=== PATIENT | female | born 1990 | race Caucasian/White ===

== ENCOUNTER 2018-04-05 09:48 | Inpatient (IN) | payer BC ==
[~2018-04-05] VITALS: Ht 162.6 cm; Wt 94.5 kg
[2018-04-05] MEDS ORDERED: LACTATED RINGERS 1,000 ML IV SCH ×2 (10:00→10:20)
[2018-04-05] MEDS ORDERED: OXYTOCIN 30U/ 0.9% NaCL 500ML 500 ML IV SCH (10:20)
[2018-04-05 10:24] VITALS: BP 118/71
[2018-04-05] MEDS ORDERED: METOCLOPRAMIDE 5 MG/ML, 2ML IV ONE (10:30)
[2018-04-05] MEDS ORDERED: LACTATED RINGERS 1,000 ML IVBOLUS ONE (10:30)
[2018-04-05] MEDS ORDERED: SODIUM CITRATE/CITRIC ACID 30 ML UDC PO ONE (10:30)
[2018-04-05] MEDS ORDERED: NEWBORN KIT ONE (11:06)
[2018-04-05] MEDS ORDERED: SODIUM CITRATE/CITRIC ACID 30 ML UDC ONE (11:06)
[2018-04-05] MEDS ORDERED: METOCLOPRAMIDE 5 MG/ML, 2ML ONE (11:07)
[2018-04-05] MEDS ORDERED: OXYTOCIN 30U/ 0.9% NaCL 500ML 500 ML ONE (11:07)
[2018-04-05 11:16] LABS: BASOPHILS # (AUTO) 0.02 x10^3/uL (0-0.1); BASOPHILS % (AUTO) 0 % (0-1); EOSINOPHILS # (AUTO) 0.03 x10^3/uL (0-0.4); EOSINOPHILS % (AUTO) 0 % (1-7); LYMPHOCYTES # (AUTO) 1.93 x10^3/uL (1-3.4); LYMPHOCYTES % (AUTO) 24 % (22-44); MD NO; MEAN CORPUSCULAR HEMOGLOBIN 30.4 pg (27.0-34.8); MEAN CORPUSCULAR HGB CONC 33.7 g/dL (32.4-35.8); MEAN CORPUSCULAR VOLUME 90.2 fL (80-100); MEAN PLATELET VOLUME 8.3 fL (7.4-10.4); MONOCYTES # (AUTO) 0.68 x10^3/uL (0.2-0.8); MONOCYTES % (AUTO) 8 % (2-9); NEUTROPHILS # (AUTO) 5.51 x10^3/uL (1.8-6.8); NEUTROPHILS % (AUTO) 67 % (42-75); PLATELET COUNT 215 x10^3/uL (130-400); RED BLOOD COUNT 4.08 x10^6/uL (3.82-5.3); RED CELL DISTRIBUTION WIDTH 14.3 % (9.6-15.2)
[2018-04-05] MEDS ORDERED: ALBUTEROL SULFATE 2.5 MG/3 ML NPPB PRN (11:30)
[2018-04-05] MEDS ORDERED: EPHEDRINE 50 MG/ML, 1ML IVPush PRN (11:30)
[2018-04-05] MEDS ORDERED: HYDROcodone/APAP 7.5-325MG/15ML UDC PO PRN (11:30)
[2018-04-05] MEDS ORDERED: HYDROmorphone 1 MG/ML, 1ML IV PRN (11:30)
[2018-04-05] MEDS ORDERED: MIDAZOLAM 1 MG/ML, 2ML IV PRN (11:30)
[2018-04-05] MEDS ORDERED: FENTANYL PF 100 MCG/2ML IV PRN (11:30)
[2018-04-05] MEDS ORDERED: OXYcodone 5 MG/5 ML ORAL.SOL UDC PO PRN (11:30)
[2018-04-05] MEDS ORDERED: PROMETHAZINE 25 MG/ML, 1ML IV PRN (11:30)
[2018-04-05] MEDS ORDERED: ONDANSETRON 2MG/ML, 2ML IVPush PRN (11:30)
[2018-04-05] MEDS ORDERED: morphine SULFATE 10 MG/ML, 1ML IV PRN (11:30)
[2018-04-05] MEDS ORDERED: hydrALAzine 20 MG/ML, 1ML IVPush PRN (11:30)
[2018-04-05] MEDS ORDERED: LABETALOL 5MG/ML, 20ML IV PRN (11:30)
[2018-04-05] MEDS ORDERED: MEPERIDINE/PF 25MG/0.5ML IVPush PRN (11:30)
[2018-04-05] MEDS ORDERED: hydrALAzine 20 MG/ML, 1ML IV PRN (11:30)
[2018-04-05] MEDS ORDERED: PHENYLEPHRINE 10 MG/ML ONE (11:35)
[2018-04-05] MEDS ORDERED: DEXAMETHASONE 4 MG/ML, 1ML ONE (11:35)
[2018-04-05] MEDS ORDERED: KETOROLAC 30 MG/1 ML ONE (11:35)
[2018-04-05] MEDS ORDERED: OXYTOCIN 10 UNITS/ML, 1ML ONE (11:35)
[2018-04-05] MEDS ORDERED: FENTANYL PF 100 MCG/2ML ONE (11:35)
[2018-04-05] MEDS ORDERED: CEFAZOLIN 1,000 MG ONE (11:35)
[2018-04-05] MEDS ORDERED: EPHEDRINE 50 MG/ML, 1ML ONE (11:35)
[2018-04-05] MEDS ORDERED: ONDANSETRON 2MG/ML, 2ML ONE (11:35)
[2018-04-05] MEDS ORDERED: MISOPROSTOL 200 MCG TABLET PR PRN (12:00)
[2018-04-05] MEDS ORDERED: RHOGAM FROM BLOOD BANK 1 NOTE EA IM/IV ONE (12:00)
[2018-04-05] MEDS ORDERED: ONDANSETRON 2MG/ML, 2ML IV PRN (12:00)
[2018-04-05] MEDS ORDERED: DIPH,PERTUSS(ACELL),TET VAC/PF NC IM-VACC PRN (12:00)
[2018-04-05] MEDS ORDERED: CALCIUM CARBONATE 500 MG TAB.CHEW PO PRN (12:00)
[2018-04-05] MEDS ORDERED: MEASLES,MUMPS&RUBELLA VACC/PF 0.5 ML SQ-VACC PRN (12:00)
[2018-04-05] MEDS ORDERED: OXYcodone IR 5MG TABLET PO PRN (12:00)
[2018-04-05] MEDS: LACTATED RINGERS 1,000 ML IV SCH ×4 (13:28→21:37)
[2018-04-05] MEDS ORDERED: OXYcodone 5 MG/5 ML ORAL.SOL UDC ONE (14:47)
[2018-04-05 15:45] VITALS: BP 114/58
[2018-04-05] MEDS: OXYTOCIN 30U/ 0.9% NaCL 500ML 500 ML IV SCH ×2 (17:25→21:37)
[2018-04-05] MEDS: KETOROLAC 30 MG/1 ML IV SCH ×2 (17:48→19:40)
[2018-04-05 19:14] LABS: MEAN CORPUSCULAR HEMOGLOBIN 30.7 pg (27.0-34.8); MEAN CORPUSCULAR HGB CONC 33.7 g/dL (32.4-35.8); MEAN CORPUSCULAR VOLUME 91.1 fL (80-100); MEAN PLATELET VOLUME 8.3 fL (7.4-10.4); PLATELET COUNT 216 x10^3/uL (130-400); RED CELL DISTRIBUTION WIDTH 13.9 % (9.6-15.2)
[2018-04-05 19:31] LABS: BASOPHILS # (AUTO) 0.03 x10^3/uL (0-0.1); BASOPHILS % (AUTO) 0 % (0-1); EOSINOPHILS % (AUTO) 0 % (1-7); LYMPHOCYTES # (AUTO) 1.33 x10^3/uL (1-3.4); LYMPHOCYTES % (AUTO) 9 % (22-44); MD SCAN; MONOCYTES # (AUTO) 0.33 x10^3/uL (0.2-0.8); MONOCYTES % (AUTO) 2 % (2-9); NEUTROPHILS # (AUTO) 13.62 x10^3/uL (1.8-6.8); NEUTROPHILS % (AUTO) 89 % (42-75)
[2018-04-05 20:00] VITALS: BP 122/74
[2018-04-06] MEDS: OXYcodone/APAP 5/325MG TABLET PO PRN ×4 (00:29→19:37)
[2018-04-06 00:30] VITALS: BP 134/74
[2018-04-06] MEDS: KETOROLAC 30 MG/1 ML IV SCH ×3 (02:26→14:37)
[2018-04-06] MEDS: LACTATED RINGERS 1,000 ML IV SCH ×5 (03:37→19:37)
[2018-04-06 04:12] VITALS: BP 104/62
[2018-04-06] MEDS: OXYTOCIN 30U/ 0.9% NaCL 500ML 500 ML IV SCH ×2 (07:34→17:50)
[2018-04-06] MEDS: DOCUSATE 100 MG CAPSULE PO PRN ×2 (07:47→19:37)
[2018-04-06] MEDS: PRENATAL VIT/IRON/FA 1 EACH TABLET PO SCH (07:47)
[2018-04-06 08:50] VITALS: BP 100/60
[2018-04-06 13:04] VITALS: BP 121/76
[2018-04-06] MEDS: IBUPROFEN 600 MG TABLET PO PRN ×2 (14:47→22:23)
[2018-04-06] MEDS ORDERED: ACETAMINOPHEN 325 MG TABLET PO PRN (18:30)
[2018-04-06 19:35] VITALS: BP 117/67
[2018-04-06] MEDS: SIMETHICONE 80 MG CHEW TAB PO PRN (19:38)
[2018-04-07] MEDS: OXYcodone/APAP 5/325MG TABLET PO PRN ×2 (03:33→09:27)
[2018-04-07] MEDS: SIMETHICONE 80 MG CHEW TAB PO PRN (03:33)
[2018-04-07] MEDS: LACTATED RINGERS 1,000 ML IV SCH ×4 (03:37→13:37)
[2018-04-07] MEDS: OXYTOCIN 30U/ 0.9% NaCL 500ML 500 ML IV SCH ×2 (03:37→13:37)
[2018-04-07] MEDS: IBUPROFEN 600 MG TABLET PO PRN (06:19)
[2018-04-07 07:05] VITALS: BP 138/80
[2018-04-07] MEDS: DOCUSATE 100 MG CAPSULE PO PRN (09:27)
[2018-04-07] MEDS: PRENATAL VIT/IRON/FA 1 EACH TABLET PO SCH (09:27)
[2018-04-07] MEDS ORDERED: IBUPROFEN 600 MG TABLET PO PRN (12:00)
[2018-04-07] MEDS ORDERED: IBUP-1222 PO (13:15)
[2018-04-07] MEDS ORDERED: OXYC-302 PO (13:16)
== END 2018-04-07 14:35 | disposition home or self-care (01) | DRG 765 ==
LOC: LDIP 09:48 → 2NW 15:33
PROVIDERS: ADMIT Obstetrics & Gynecology Gynecology; ATTEND Obstetrics & Gynecology Gynecology
PROC: 10D00Z1 Extraction of Products of Conception, Low, Open Approach (ICD-10-PCS; principal; 2018-04-05)
DX: O34.211 Maternal care for low transverse scar from previous cesarean delivery (principal); O99.354 Diseases of the nervous system complicating childbirth; J45.909 Unspecified asthma, uncomplicated; O99.52 Diseases of the respiratory system complicating childbirth; G43.909 Migraine, unspecified, not intractable, without status migrainosus; O24.429 Gestational diabetes mellitus in childbirth, unspecified control; Z37.0 Single live birth; Z3A.39 39 weeks gestation of pregnancy; Z23 Encounter for immunization
CPT/HCPCS: 36415; 82803; 82962; 85025; 86850; 86900; J0690; J1100; J1885; J2405; J3010; J2370; J2590; J2765; J7120